=== PATIENT | female | born 1970 | race Asian ===

== ENCOUNTER 2024-03-29 13:03 | Emergency (ER) | payer OTHER, SELFPAY ==
[2024-03-29] VITALS (24 sets, daily range): BP systolic 112–179; BP diastolic 67–132; PULSE 95–118; RESP 18–36; TEMP 36.7; O2SAT 91–99; BMI 32.9
--- NOTE | 2024-03-29 13:19 | EKG_ITS ---
[address] [address] Test Date: 2024-03-29 Pat Name: Darlene Boudreaux Department: Room: Gender: Female Export Administrator: XIOMARA : 1970 Requested By: Order Number: [id number] Reading MD: Roberto Box Measurements Intervals [place] Rate: 114 P: 32 TN: 146 QRS: 32 QRSD: 72 T: 20 QT: 336 QTc: 463 Interpretive Statements Sinus tachycardia Electronically Signed On 03-30-2024 7:53:56 PST by Roberto Box
--- NOTE | 2024-03-29 13:19 | PC.NURSE ---
Modified trauma called 1312
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
--- NOTE | 2024-03-29 13:35 | PC.NURSE ---
Patient placed on portable monitor and float RN went with patient and phlebotomy services technician to imaging department.
--- NOTE | 2024-03-29 14:08 | PC.NURSE ---
Addendum entered by Jatinder Navarrete R.N. 03/29/24 14:13: Pupils are equal and reactive to light. 3mm. Lab on way to draw blood. Original Note: This RN checks on patient. She c/o 5/10 neck pain and 5/10 RIGHT arm pain, specifically to her posterior elbow. Rigid c-collar remains in place. She is A&Ox4. Breathing is even and unlabored. She does report hx of a cough for past 2 weeks. She is diabetic and takes metformin to manage. Bedside glucose is 149. This RN with OMER Vieyra at bedside do a visual assessment of her braden-area and lower extremities. Pt has no over obvious trauma or deformities. No bleeding and no pain reported to her lower half. Call light is within reach and encouraged to use for needs.
[2024-03-29] MEDS: ACETAMINOPHEN 325 MG TABLET PO (14:21)
[2024-03-29 14:30] LABS: Add Manual Diff / Slide Review NO; Basophils Absolute Auto 0 /uL (0-100); Basophils Percent Auto 0.4 % (0-2); Eosinophils Absolute Auto 200 /uL (0-450); Eosinophils Percent Auto 2.4 % (2-4); Hemoglobin 14.6 g/dL (12.0-16.0); Lymphocytes Absolute Auto 1600 /uL (1100-4500); Mean Corpuscular HGB Conc 33.9 % (30-36); Mean Corpuscular Hemoglobin 28.7 PG (26-34); Mean Corpuscular Volume 84.7 fL (80-100); Monocytes Absolute Auto 500 /uL (0-900); Monocytes Percent Auto 5.2 % (3-14); Neutrophils Absolute Auto 7000 /uL (1500-7000); Platelet Count 412 X10^3/uL (150-400); Red Blood Cell Count 5.08 X10^6/uL (4.0-5.2); Red Cell Distribution Width 12.6 % (11.6-14.8); White Blood Cell Count 9.3 X10^3/uL (4.5-11.0)
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
[2024-03-29 14:45] LABS: Alanine Aminotransferase 31 IU/L (<35); Albumin 4.6 g/dL (3.5-5.0); Albumin Globulin Ratio 1.4 (1.0-2.8); Alkaline Phosphatase 91 U/L (38-126); Aspartate Aminotransferase 25 IU/L (14-36); BUN Creatinine Ratio 33.3 (6-22); Bilirubin Total 0.4 mg/dL (0.2-1.3); Blood Urea Nitrogen 16 mg/dL (7-17); Calcium 8.9 mg/dL (8.4-10.2); Carbon Dioxide 28 mmol/L (22-32); Chloride 105 mmol/L (98-107); Estimated Glomerular Filt Rate > 60 mL/min (>60); Globulin 3.2 g/dL (1.7-4.1); Glucose 143 mg/dL (70-100); HEMOLYSIS < 15 (0-50); Lipase 568 U/L (23-300); Potassium 3.3 mmol/L (3.4-5.1); Sodium 140 mmol/L (137-145); Total Protein 7.8 g/dL (6.3-8.2)
--- NOTE | 2024-03-29 14:52 | PC.NURSE ---
Provider James clears C-spine and rigid color is removed.
[2024-03-29] MEDS: OXYCODONE IR 5 MG TABLET PO (14:55)
[2024-03-29] MEDS: OXYCODONE/APAP 5/325 PREPACK 1 BOTTLE MISC (17:27)
== END 2024-03-29 17:30 | disposition home or self-care (01) ==
PROVIDERS: Emergency Provider Emergency Medicine; PCP Family Medicine
DX: S16.1XXA Strain of muscle, fascia and tendon at neck level, initial encounter (principal); S50.01XA Contusion of right elbow, initial encounter; S09.90XA Unspecified injury of head, initial encounter; M25.521 Pain in right elbow; R00.0 Tachycardia, unspecified; V89.2XXA Person injured in unspecified motor-vehicle accident, traffic, initial encounter
CPT/HCPCS: 36415; 70450; 71045; 72125; 73080; 80053; 82962; 83690; 85025; 93005; 99284